=== PATIENT | male | born 1955 | race Caucasian/White ===

== ENCOUNTER 2016-08-21 21:19 | Emergency (ER) | payer SELFPAY ==
[2016-08-21 22:11] LABS: BASOPHILS 0.4 % (0.0-2.0); EOSINOPHILS 0.9 % (0.0-6.0); EOSINOPHILS# 0.1 X 10^3uL (0.0-0.4); HEMOGLOBIN 15.6 g/dL (14.0-18.0); LYMPHOCYTES 17.4 % (20.0-40.0); LYMPHOCYTES# 1.4 X 10^3uL (0.8-3.8); MEAN CELL VOLUME 91.3 fL (80.0-100.0); MEAN PLATELET VOLUME 7.8 fL (7.4-10.4); MONOCYTES 7.7 % (2.0-10.0); MONOCYTES# 0.6 X 10^3uL (0.2-1.0); NEUTROPHILS 73.6 % (54.0-75.0); NEUTROPHILS# 6.2 X 10^3uL (2.6-6.7); PLATELET COUNT 192 X 10^3uL (130-440); RED BLOOD COUNT 5.04 X 10^6uL (4.20-6.10); RED CELL DISTRIBUTION WIDTH 13.1 % (11.5-14.5); WHITE BLOOD COUNT 8.3 X 10^3uL (3.9-10.7)
[2016-08-21 22:18] LABS: ALBUMIN 4.3 g/dL (3.5-5.0); ALKALINE PHOSPHATASE 103 U/L (38-126); ALT 44 U/L (21-72); AST 22 U/L (17-59); BILIRUBIN, TOTAL 0.7 mg/dL (0.2-1.3); BLOOD UREA NITROGEN 16 mg/dL (9-20); CALCIUM 9.9 mg/dL (8.4-10.2); CHLORIDE 106 mmol/L (98-107); CREATININE 0.8 mg/dL (0.7-1.3); EST GLOMERULAR FILTRATION RATE > 60 mL/min; GLUCOSE 159 mg/dL (70-100); LIPASE 60 U/L (23-300); POTASSIUM 3.6 mmol/L (3.5-5.1); SODIUM 138 mmol/L (137-145); TOTAL PROTEIN 7.2 g/dL (6.3-8.2)
[2016-08-21 22:20] LABS: ACETAMINOPHEN < 10.0 ug/mL (10.0-30.0); ETHYL ALCOHOL < 10 mg/dL (<10); SALICYLATE < 1.0 mg/dL (<20.0)
[2016-08-21 22:47] LABS: THYROID STIMULATING HORMONE 0.44 uIU/mL (0.47-4.68)
[2016-08-21 22:48] LABS: URINE MUCUS NONE SEEN (Up to 25%); URINE RBC NONE SEEN (0-5/hpf); URINE SQUAMOUS EPITHELIAL CELL NONE SEEN (<= 15/hpf); URINE WBC NONE SEEN (0-4/hpf)
[2016-08-21 22:53] LABS: URINE APPEARANCE CLEAR; URINE COLOR YELLOW; URINE LEUKOCYTE ESTERASE NEGATIVE (NEGATIVE); URINE NITRITE NEGATIVE (NEGATIVE); URINE PROTEIN 30mg/dL (1+) (NEG - TRACE)
[2016-08-21 22:54] LABS: URINE BILIRUBIN NEGATIVE (NEGATIVE); URINE BLOOD NEGATIVE (NEGATIVE); URINE GLUCOSE NORMAL (NEGATIVE); URINE KETONE NEGATIVE (NEGATIVE); URINE UROBILINOGEN 1mg/dL (Normal) (NEG-1mg/dL)
[2016-08-21 22:59] LABS: URINE BACTERIA <10 ORGANISMS/hpf (<10/hpf); URINE SPERM PRESENT
--- NOTE | 2016-08-21 23:09 | ER NURSING DOCUMENTATION ---
Nurse's Notes [facility] Name:Virgilio Taveras Age:61 yrs Sex:Male :1955 Arrival Date:08/21/2016 Time:21:19 Bed5 Private MD:Jacy Gonzalez Diagnosis:Major Depression with Suicidal Ideation Presentation: 08/21 21:22 Presenting complaint: Patient states: TOOK 2 AMBIEN TONIGHT AT 7PM BECAUSE I WAS SO lc TIRED AND WANTED TO SLEEP. DAUGHTERS STATE THAT HE SAID WANTED TO KILL HIMSELF TODAY. STATES HE HAS BEEN HAVING TROUBLE GETTING OUT OF BED EACH DAY DUE TO CHRONIC HIP PAIN. 21:22 Acuity: KADEN 2 21:22 Method Of Arrival: Private Vehicle lc 21:25 Transition of care: Home. Notified ED Physician of patient's arrival and CC Dr. Lugo lc notified. Triage Assessment: 21:42 General: Appears in no apparent distress, Behavior is cooperative, drowsy. Pain: Denies lc pain. Neuro: Level of Consciousness is awake, alert, Oriented to person, place, time, event, Speech is normal. Respiratory: Airway is patent Respiratory effort is even, unlabored, Respiratory pattern is regular, symmetrical. Derm: Skin is pink, warm & dry. Historical: - Home Meds: 1. Zolpidem Tartrate Oral 2. amlodipine oral 3. Bupropion Oral 4. fluoxetine Oral 5. Metformin Oral 6. Omeprazole Oral 7. oxycodone 20 mg oral tab 1 tab every 6 hours - Tetanus: < 10 years. - Ebola Screening: : No symptoms or risks identified at this time. . - Immunization history: Flu Vaccine < 1 year. - Social history: Smoking status: Patient uses tobacco products, current every day smoker. Screenin:47 Infectious Disease Risk None. Abuse screen: Denies threats or abuse. Denies injuries lc from another. Nutritional screening: No deficits noted. Suicide Risk Assessment: Suicidal Thinking Present - Yes ( 2 points), Past Attempts - No (0 points), Family History of Suicide - No (0 points), Credible Suicide Plan - No (0 points), Means to Kill Self Available - Yes (3 points), Has Serious Health Problem - No ( 0 points), Will Contract for Safety - Yes (0 points), Total Suicide Risk Assessment Score: Score of 3 or Greater (Substantial risk for suicide). Family member remains at bedside. Assessment: 21:46 See Triage Assessment done by same RN. lc 21:51 Reassessment: Patient appears in no apparent distress at this time. MED BOTTLES REFLECT lc ONLY 2 AMBIEN MISSING, DAUGHTERS AT BEDSIDE, PATIENT DENIES URGE TO HURT HIMSELF.. 22:24 Reassessment: Patient appears in no apparent distress at this time. PO FLUIDS GIVEN lc INORDER TO OBTAIN UA SPECIMEN. 23:01 Reassessment: Patient appears in no apparent distress at this time. MONITOR IN NSR, lc VSS, IV DC'D, DAUGHTERS TO DRIVE DOWN TO [facility], UA COLLECTED. PATIENT CONSENTS TO [facility] EVALUATION. Vital Signs: 21:22 BP 142 / 86 (auto/); Pulse 74; Resp 16; Pulse Ox 92% on R/A; Pain 0/10; lc 21:30 BP 164 / 98; Pulse 90; Resp 16; Temp 98; Pulse Ox 97% on R/A; Weight 73.94 kg; Height 5 ft. 11 in. (180.34 cm); Pain 0/10; 21:30 BP 153 / 94 (auto/); Pulse 80; Resp 16; Pulse Ox 93% ; Pain 0/10; lc 23:08 Pulse 72; Resp 16; Pulse Ox 92% ; Pain 0/10; lc 21:30 Body Mass Index 22.73 (73.94 kg, 180.34 cm) ED Course: 21:20 Patient arrived in ED. em2 21:20 Jacy Gonzalez is Private Physician. em2 21:22 Kortney Blas, JERICA is Primary Nurse. 21:25 Blane Lugo MD is Attending Physician. tl1 21:30 court monitor on. Pulse ox on. 21:41 Triage completed. 21:50 Valuables Remains with patient NO SHARP OBJECTS. Patient has correct armband on for lc positive identification. Bed in low position. Call light in reach. Adult w/ patient. Pulse Ox - RN Monitoring Only. 22:03 Inserted peripheral IV: 20 gauge in left antecubital area. bw2 22:08 Labs drawn. (by ED staff). Sent per order to lab. lc Administered Medications: No medications were administered Outcome: 22:28 ER care complete, transfer ordered by . tl1 23:03 [facility] lc Acceptance Time: August 21, 2016 at 22:30 Patient's face sheet was faxed to accepting facility. Face Sheet included patient's name, address, age, gender, contact information and insurance information. Patient will be transported by: Private Vehicle. Report called to: AMAURY PIZANO Nurse and Physician Charting and Notes were sent to Accepting Facility. All tests and/or procedures with results, if applicable, were sent to accepting facility. 23:03 Condition: stable 23:03 Report given to AMAURY PIZANO 23:03 Discharge Assessment: Patient awake and alert. Oriented to person, place and time. Patient verbalized understanding of disposition instructions. 23:03 Discharge instructions given to patient, family, Instructed on need for transfer Demonstrated understanding of instructions. 23:08 Patient left the ED. Signatures: Kortney Blas, RN RN lc Raquel-reg, Umu-reg em2 Blane Lugo MD MD tl1 Andria, Sandra bw2
--- NOTE | 2016-08-21 23:09 | ER PHYSICIAN DOCUMENTATION ---
Physician Documentation [facility] Name:Virgilio Taveras Age:61 yrs Sex:Male :1955 Arrival Date:08/21/2016 Time:21:19 Bed5 Private MD:Jacy Gonzalez ED, Tom Disposition: 08/21 22:42 Chart complete. tl1 Disposition: 08/21/16 22:28 Transfer ordered to [facility]. Diagnosis is Major Depression with Suicidal Ideation. - Reason for transfer: Specialty. - Accepting physician is Dr Nadia Ordoñez. - Condition is Good. - Problem is new. - Symptoms have improved. COBRA Form completed? Yes Transfer - Mode of Transportation Private Vehicle - Notes: [facility] FURTHER EVALUATION HPI: 21:47 This 61 yrs old Male presents to ER via Private Vehicle with complaints of tl1 Suicidal Ideation. 21:47 The patient presents to the emergency department with depression, suicide ideation, and tl1 the patient has a plan. Onset: The symptom(s)/episode began/occurred gradually. 22:28 He has a long h/o depression, never hospitalized, now on prozac and bupoprion. His left tl1 hip pain has become severe and for the last 8 weeks he has been taking oxycodone for this. For the last 6 weeks his depression has deepened to the point that he is exhausted, sleeping poorly and has only the energy to go to work and go to bed. He has severe anhedonia, sleep difficulties and, over the last several day, increasing thoughts of suicide. His last daughter is moving out of the house this weekend and he is very sad about that as he will be living alone. He confided to his daughter jaskaran that he had taken 2 ambien tablets earlier in the day, hoping to end his life, but he now regrets that decision, does not want to , and is glad that his daughters brought him here. He denies any . other ingestion, and currently has no other plan for taking his life.. Historical: - Home Meds: 1. Zolpidem Tartrate Oral 2. amlodipine oral 3. Bupropion Oral 4. fluoxetine Oral 5. Metformin Oral 6. Omeprazole Oral 7. oxycodone 20 mg oral tab 1 tab every 6 hours - Tetanus: < 10 years. - Ebola Screening: : No symptoms or risks identified at this time. . - Immunization history: Flu Vaccine < 1 year. - Social history: Smoking status: Patient uses tobacco products, current every day smoker. ROS: 22:36 Constitutional: Negative for fever, chills, and weight loss. tl1 22:36 Psych: Positive for depression, insomnia, suicide gesture, suicidal ideation, Negative for drug dependence, alcohol dependence, auditory hallucinations, visual hallucinations, homicidal ideation. 22:36 All other systems are negative. Exam: 22:37 Constitutional: This is a well developed, well nourished patient who is awake, alert, tl1 and in no acute distress. Head/Face: Normocephalic, atraumatic. Eyes: Pupils equal round and reactive to light, extra-ocular motions intact. Lids and lashes normal. Conjunctiva and sclera are non-icteric and not injected. Cornea within normal limits. Periorbital areas with no swelling, redness, or edema. ENT: Nares patent. No nasal discharge, no septal abnormalities noted. Tympanic membranes are normal and external auditory canals are clear. Oropharynx with no redness, swelling, or masses, exudates, or evidence of obstruction, uvula midline. Mucous membranes moist. Neck: Trachea midline, no thyromegaly or masses palpated, and no cervical lymphadenopathy. Supple, full range of motion without nuchal rigidity, or vertebral point tenderness. No Meningismus. Cardiovascular: Regular rate and rhythm with a normal S1 and S2. No gallops, murmurs, or rubs. Normal PMI, no JVD. No pulse deficits. Respiratory: Lungs have equal breath sounds bilaterally, clear to auscultation and percussion. No rales, rhonchi or wheezes noted. No increased work of breathing, no retractions or nasal flaring. Abdomen/GI: Soft, non-tender, with normal bowel sounds. No distension or tympany. No guarding or rebound. No evidence of tenderness throughout. Skin: Warm, dry with normal turgor. Normal color with no rashes, no lesions, and no evidence of cellulitis. MS/ Extremity: Pulses equal, no cyanosis. Neurovascular intact. Full, normal range of motion. 22:37 Neuro: Awake and alert, GCS 15, oriented to person, place, time, and situation. tl1 Cranial nerves II-XII grossly intact. Motor strength 5/5 in all extremities. Sensory grossly intact. Cerebellar exam normal. Normal gait. 22:37 Psych: Behavior/mood is pleasant, cooperative, depressed, Affect is calm, flat, Oriented to person, place, time, Patient having thoughts of suicide. Denies suicidal plan. Judgement / Insight is normal. Memory is normal. Delusions/hallucinations are not present. Vital Signs: 21:22 BP 142 / 86 (auto/); Pulse 74; Resp 16; Pulse Ox 92% on R/A; Pain 0/10; lc 21:30 BP 164 / 98; Pulse 90; Resp 16; Temp 98; Pulse Ox 97% on R/A; Weight 73.94 kg; Height 5 lc ft. 11 in. (180.34 cm); Pain 0/10; 21:30 BP 153 / 94 (auto/); Pulse 80; Resp 16; Pulse Ox 93% ; Pain 0/10; lc 23:08 Pulse 72; Resp 16; Pulse Ox 92% ; Pain 0/10; lc 21:30 Body Mass Index 22.73 (73.94 kg, 180.34 cm) MDM: 21:25 Patient medically screened. tl1 22:38 Differential diagnosis: depression. Data reviewed: vital signs, nurses notes, and as a tl1 result, I will *Transfer Patient. Counseling: I had a detailed discussion with the patient and/or guardian regarding: the historical points, exam findings, and any diagnostic results supporting the discharge/admit diagnosis, lab results, the need to transfer to another facility, for higher level of care, [facility] does not immediately have the required specialist. Response to treatment: There is no appreciated change of the patient's symptoms at this time. Physician consultation: Nadia Ordoñez was called at 22:20, was contacted at 22:25, regarding patient's condition, Transfer for psych hospitalization., and will see patient in ED, at [facility]. after a discussion of the case, a recommendation for transfer for higher level of care is made. 08/21 22:17 Order name: CBC AUTO DIF, MDIF/RMOR IF IND; Complete Time: 01:16 EDMS 08/22 01:16 Interpretation: Normal. tl1 08/21 22:20 Order name: BASIC METABOLIC PANEL; Complete Time: 01:16 EDMS 08/22 01:16 Interpretation: Normal Except: GLUCOSE 159. 08/21 22:20 Order name: HEPATIC PANEL; Complete Time: 01:16 EDMS 08/22 01:16 Interpretation: Normal. 08/21 22:20 Order name: LIPASE; Complete Time: 01:16 EDMS 08/22 01:16 Interpretation: Normal: LIPASE 60. 08/21 22:20 Order name: SALICYLATE; Complete Time: 01:16 EDMS 08/22 01:16 Interpretation: Normal: SALICYLATE < 1.0. 08/21 22:20 Order name: ETHYL ALCOHOL; Complete Time: 01:16 EDMS 08/22 01:16 Interpretation: Normal: ETHYL ALCOHOL < 10. 08/21 22:20 Order name: ACETAMINOPHEN; Complete Time: 01:16 EDMS 08/22 01:16 Interpretation: Normal: ACETAMINOPHEN < 10.0. 08/21 22:48 Order name: THYROID STIMULATING HORMONE; Complete Time: 01:16 EDIL 08/21 23:01 Order name: UA W/ MICRO -CULTURE IF IND; Complete Time: 01:16 EDMS 08/22 01:16 Interpretation: Normal. 08/21 23:01 Order name: URINE DRUG SCREEN, QUAL; Complete Time: 01:16 EDMS 08/22 01:16 Interpretation: Normal Except: [place] PRESUMPTIVE POS. 08/21 21:48 Order name: Continuous Cardiac Monitoring; Complete Time: 22:35 [place] 08/21 21:48 Order name: I & O; Complete Time: 22:35 [place] 08/21 21:48 Order name: Iv Saline Lock; Complete Time: 22:35 08/21 21:48 Order name: NPO; Complete Time: 22:35 08/21 21:48 Order name: Pulse Ox Continuous; Complete Time: 22:35 [place] 08/21 21:48 Order name: Suicide Precautions; Complete Time: 22:35 tl1 Dispensed Medications: No medications were administered Signatures: Kortney Blas, Blane Ibanez RN, MD MD 1 Sandra Ayers [facility]
== END 2016-08-21 23:08 | disposition short-term general hospital (02) ==
LOC: ER 21:19
DX: F32.9 Major depressive disorder, single episode, unspecified (principal); R45.851 Suicidal ideations; M25.552 Pain in left hip; G47.00 Insomnia, unspecified; F13.929 Sedative, hypnotic or anxiolytic use, unspecified with intoxication, unspecified; Z79.899 Other long term (current) drug therapy
CPT/HCPCS: 80048; 80076; 80305; 80307; 80320; 80329; 81001; 83690; 84443; 85025; 99285

== ENCOUNTER 2016-09-16 20:58 | Emergency (ER) | payer SELFPAY ==
[2016-09-16] MEDS ORDERED: ONDANSETRON ODT 4 MG TAB.RAPDIS ONE (21:24)
[2016-09-16 21:29] LABS: BASOPHIL# 0.1 X 10^3uL (0.0-0.1); BASOPHILS 0.6 % (0.0-2.0); EOSINOPHILS 0.2 % (0.0-6.0); HEMATOCRIT 47.6 % (42.0-54.0); HEMOGLOBIN 16.2 g/dL (14.0-18.0); LYMPHOCYTES 17.1 % (20.0-40.0); LYMPHOCYTES# 2.1 X 10^3uL (0.8-3.8); MEAN CELL VOLUME 91.9 fL (80.0-100.0); MEAN CORPUS. HGB CONCENTRATION 34.1 g/dL (32.0-36.0); MEAN CORPUSCULAR HEMOGLOBIN 31.3 pg (29.0-35.0); MEAN PLATELET VOLUME 8.1 fL (7.4-10.4); MONOCYTES 3.9 % (2.0-10.0); MONOCYTES# 0.5 X 10^3uL (0.2-1.0); NEUTROPHILS 78.2 % (54.0-75.0); NEUTROPHILS# 9.6 X 10^3uL (2.6-6.7); PLATELET COUNT 340 X 10^3uL (130-440); RED BLOOD COUNT 5.18 X 10^6uL (4.20-6.10); RED CELL DISTRIBUTION WIDTH 13.3 % (11.5-14.5); WHITE BLOOD COUNT 12.3 X 10^3uL (3.9-10.7)
[2016-09-16 21:41] LABS: ALBUMIN 4.4 g/dL (3.5-5.0); ALKALINE PHOSPHATASE 191 U/L (38-126); ALT 54 U/L (21-72); AST 34 U/L (17-59); BILIRUBIN, DIRECT 0.2 mg/dL (0.0-0.4); BILIRUBIN, TOTAL 0.8 mg/dL (0.2-1.3); BLOOD UREA NITROGEN 12 mg/dL (9-20); CALCIUM 10.3 mg/dL (8.4-10.2); CHLORIDE 104 mmol/L (98-107); EST GLOMERULAR FILTRATION RATE > 60 mL/min; GLUCOSE 162 mg/dL (70-100); LIPASE 57 U/L (23-300); POTASSIUM 4.1 mmol/L (3.5-5.1); SODIUM 138 mmol/L (137-145); TOTAL PROTEIN 7.3 g/dL (6.3-8.2)
[2016-09-16] MEDS ORDERED: ONDANSETRON HCL 4 MG/2 ML VIAL ONE (21:53)
[2016-09-16] MEDS ORDERED: ACETAMINOPHEN 325 MG TABLET PO PRN (21:58)
[2016-09-16] MEDS ORDERED: HOME MEDICATION LIST NEEDED 1 EA EACH MC ONE (21:58)
[2016-09-16] MEDS ORDERED: MAG-AL PLUS XS SUSP 30 ML UDC PO PRN (21:58)
[2016-09-16] MEDS ORDERED: ZOLPIDEM TARTRATE 5 MG TABLET PO PRN (21:58)
[2016-09-16] MEDS ORDERED: POLYETHYLENE GLYCOL 3350 17 GM POWD.PACK PO PRN (21:58)
[2016-09-16] MEDS ORDERED: POTASSIUM CHLORIDE/NS 1,000 MEQ/50,000 ML BAG IV SCH (22:00)
[2016-09-16] MEDS ORDERED: oxyCODONE HCL IR 20 MG TABLET PO PRN (22:05)
[2016-09-16] MEDS ORDERED: ONDANSETRON ODT 4 MG TAB.RAPDIS PO PRN (22:06)
[2016-09-16] MEDS ORDERED: MORPHINE SULFATE 2 MG/ML SYR IV PRN (22:06)
[2016-09-16 22:28] LABS: ACETAMINOPHEN < 10.0 ug/mL (10.0-30.0); ETHYL ALCOHOL < 10 mg/dL (<10); MAGNESIUM 1.6 mg/dL (1.6-2.3); SALICYLATE < 1.0 mg/dL (<20.0)
[2016-09-16] MEDS ORDERED: PIPERACILLIN /TAZO 3.375 GM/10 ML VIAL IV ONE (22:56)
[2016-09-16] MEDS ORDERED: NORMAL SALINE MINI-BAG+ 100 ML IV ONE (22:58)
[2016-09-16] MEDS ORDERED: LIDOCAINE HCL 2% URO-JET 5 ML JEL.PF.APP MUCOUS MEM ONE (22:59)
[2016-09-16] MEDS ORDERED: NORMAL SALINE 250 ML IV ONE (23:00)
--- NOTE | 2016-09-17 00:03 | ER NURSING DOCUMENTATION ---
Nurse's Notes [facility] Name:Virgilio Taveras Age:61 yrs Sex:Male :1955 Arrival Date:09/16/2016 Time:20:58 BedD-11 Private MD:Jcay Gonzalez Diagnosis:Metabolic Acidosis;Gastroenteritis;Vomiting - Dehydration-with [place];Sepsis-: Rule out;Hyperventilation Syndrome Presentation: 09/16 21:00 Presenting complaint: EMS states: N/V/D x two days. Today increased weakness and AMS. mk4 Transition of care: Home. 21:00 Method Of Arrival: EMS: 420 mk4 21:00 Acuity: KADEN 2 mk4 Triage Assessment: 20:50 General: Appears distressed, emaciated, Behavior is listless. Pain: Denies pain. EENT: mk4 No deficits noted. Neuro: Level of Consciousness is awake, confused, lethargic, obeys commands, Oriented to person, [place] are weak bilaterally Moves all extremities. Gait is unsteady, Speech is slurred, Facial symmetry appears normal, Pupils are sluggish. Cardiovascular: Rhythm is regular Chest pain is denied. Respiratory: Airway is patent Trachea midline Respiratory effort is labored, gasping, pursed lip, Respiratory pattern is hyperventilation Breath sounds are clear Reports shortness of breath labored breathing Onset: The symptoms/episode began/occurred gradually, the patient has severe shortness of breath. GI: Abdomen is flat, Bowel sounds diminished in right upper quadrant, left upper quadrant, right lower quadrant and left lower quadrant. :. Derm: No deficits noted. Musculoskeletal: No deficits noted. Historical: - Allergies: No known drug Allergies; - Home Meds: 1. fluoxetine Oral Unknown 2. Iron CR Oral Unknown 3. Zolpidem Tartrate Oral Unknown 4. Bupropion Oral Unknown 5. Metformin Oral Unknown 6. Metoprolol Tartrate Oral 7. amlodipine oral Unknown 8. Omeprazole Oral Unknown - PMHx: HYPERTENSION; Acute Respiratory Distress/Insufficiency (May 21, 2015); - Tetanus: < 10 years. - Ebola Screening: : No symptoms or risks identified at this time. . - Immunization history: Unable to Obtain Unable to Obtain Unable to Obtain. - Social history: Smoking status: unknown if patient ever smoked tobacco. Screenin:00 Infectious Disease Risk None. Abuse screen: Denies threats or abuse. Nutritional mk4 screening: No deficits noted. Assessment: 21:00 See Triage Assessment done by same RN. mk4 Vital Signs: 20:59 BP 168 / 96 RA Sitting (auto/reg); Pulse 91 MON; Resp 40 S; Pulse Ox 100% ; em3 21:28 Temp 97.8(TE); em3 21:53 BP 132 / 76; Pulse 86; Resp 20; Pulse Ox 100% ; em3 21:53 BP 132 / 76 (auto/); mk4 21:55 Pulse 87 MON; Resp 17; Pulse Ox 99% ; mk4 22:56 BP 158 / 84; Pulse 85; Resp 24; Temp 98.7; Pulse Ox 99% ; Pain 0/10; mk4 [place] Coma Score: 21:00 Eye Response: spontaneous(4). Verbal Response: oriented(5). Motor Response: obeys mk4 commands(6). Total: 15. 21:55 Eye Response: spontaneous(4). Verbal Response: oriented(5). Motor Response: obeys cd commands(6). Total: 15. ED Course: 20:59 Patient arrived in ED. em2 20:59 Jacy Gonzalez is Private Physician. em2 21:00 Inserted peripheral IV: 18 gauge 20 gauge in right in left antecubital area and blood mk4 collected. 21:00 Allergy Band Placed Arm band placed on Bed in low position Call Light in Reach Gowned mk4 Side rails up x2. Family accompanied patient. EKG done per protocol. Labs ordered per protocol. X-ray done. 21:00 Cardiac Monitoring On for Nurse Monitoring only. Pulse Ox - RN Monitoring Only NIBP On mk4 - RN Monitoring Only. Door closed. Noise minimized. Warm blanket given. 21:05 Jose Martinez MD is Attending Physician. cd 21:09 Priscilla Marquez is Primary Nurse. mk4 22:08 Alba Gallegos DO is Admitting Physician. cd 22:13 Triage completed. mk4 23:00 [place] cath inserted 16 Fr. To gravity drainage. Urine specimen collected. Patient mk4 tolerated well. 23:06 Urine collected. Specimen obtained from [place]. em3 23:45 Valuables sent with patient. mk4 Administered Medications: Completed: NS 0.9% 1000 ml IV at 250 ml/hr continuous Completed: NS 0.9% 1000 ml IV at bolus once 21:00 Drug: NS 0.9% 1000 ml; Volume: 1000 ml; Route: IV; Rate: bolus; Infused Over: 45 mins; mk4 Site: left antecubital; Delivery: [place] Tubing; 22:35 Follow up: IV Status: Completed infusion; Infusion discontinued mk4 21:31 Drug: Zofran 4 mg; Route: IVP; Rate: 4 bolus; Infused Over: 2 mins; Site: left [facility] antecubital; 22:36 Follow up: Response: No adverse reaction; Nausea is decreased mk4 21:40 Drug: NS 0.9% 1000 ml; Volume: 1000 ml; Route: IV; Rate: 250 ml/hr; Infused Over: 4 mk4 hrs; Site: left antecubital; Delivery: Pump; 22:35 Follow up: IV Status: Completed infusion; Infusion continued mk4 22:37 Follow up: IV Intake: 1000ml mk4 22:10 Drug: NS 0.9% 1000 ml; Route: IV; Rate: bolus; Site: left antecubital; bw2 22:36 Follow up: IV Status: Completed infusion; Infusion discontinued; IV Intake: 1000ml mk4 22:55 Drug: Zosyn 3.375 grams; Volume: 100 ml; Route: IVPB; Rate: 3.75 bolus; Infused Over: mk4 30 mins; Site: left antecubital; Delivery: Pump; 23:54 Follow up: IV Status: Completed infusion; Infusion discontinued; IV Intake: 100ml mk4 22:56 CANCELLED (Duplicate Order): Zosyn 3.375 grams IVPB once mk4 23:30 Drug: Phenergan 12.5 mg; Route: IVP; Rate: 12.5 bolus; Infused Over: 5 mins; Site: left [facility] antecubital; 23:55 Follow up: Response: No adverse reaction; Nausea is decreased mk4 Point of Care Testing: Urine Dip: 23:00 pH: 6.5; ; Specific [place]: 1.015; Ketones: Moderate; Glucose: Negative; Protein: em3 Trace; Leukocytes: Negative; Nitrite: Negative ; Blood: Non Hemolyzed Trace; Bilirubin: Negative ; Urobilinogen: Normal Intake: 22:36 IV: 1000ml; Total: 1000ml. mk4 22:37 IV: 1000ml; Total: 2000ml. mk4 23:54 IV: 100ml; Total: 2100ml. mk4 Output: 22:55 Urine: 1400ml ([place]); Total: 1400ml. em3 Outcome: 22:11 Decision to Admit by Provider. cd 22:56 Transferred: Patient will be transferred to: [facility]. Facility mk4 Acceptance Time: September 16, 2016 at 22:56 Patient's face sheet was faxed to accepting facility. Face Sheet included patient's name, address, age, gender, contact information and insurance information. Patient will be transported by: [facility] ground. Report called to: ICU Segun RN 22:56 critical 22:56 Report given to ICU charge account authorizer 22:56 Discharge Assessment: Patient awake, confused, lethargic, Oriented to person. 23:07 ER care complete, transfer ordered by . cd 09/17 00:03 Patient left the ED. mk4 Signatures: Jose Martinez MD MD cd Raquel-Duncan pathak em2 Kit Le em3 Priscilla Marquez mk4 Sandra Ayers 2
--- NOTE | 2016-09-17 00:03 | ER PHYSICIAN DOCUMENTATION ---
Physician Documentation [facility] Name:Virgilio Taveras Age:61 yrs Sex:Male :1955 Arrival Date:09/16/2016 Time:20:58 BedD-11 Private MD:Jacy Gonzalez ED, Chris Disposition: 09/16 22:08 Critical Care: not applicable. cd 22:30 Chart complete. cd Disposition: 09/16/16 23:07 Transfer ordered to [facility]. Diagnosis are Metabolic Acidosis, Gastroenteritis, Vomiting - Dehydration - with Ketouria, Sepsis - : Rule out, Hyperventilation Syndrome. - Reason for transfer: Higher level of care. - Accepting physician is Dr. Dominick Pena, [facility] Hospitalist. - Condition is Fair. - Problem is new. - Symptoms have improved. COBRA Form completed? Transfer - Mode of Transportation Ambulance HPI: 21:00 This 61 yrs old Male presents to ER via EMS with complaints of Shortness Of cd Breath. 21:00 The patient has shortness of breath at rest, that occurred at home, Patient reports cd severe nausea and vomiting for the past 2 - 3 days. He has been very anxious and presented to the ED ,per the EMS, hyperventilating with an O2 sat of 100%. He was given Zofran NURSE CLINICAL. Onset: The symptom(s)/episode began/occurred gradually, 3 day(s) ago. Duration: The symptoms are continuous, and are steadily getting worse. The patient's shortness of breath is aggravated by eating, is alleviated by nothing. The patient presents to the emergency department with nausea, that is severe, with vomiting, that is intermittent, described as clear fluid, with diarrhea, a few times, described as watery, without any complaints of abdominal pain. Possible causes: unknown. Associated signs and symptoms: Pertinent positives: diaphoresis, nausea, vomiting, Pertinent negatives: chest pain, productive cough, fever, hemoptysis, loss of consciousness. Severity of symptoms: At their worst the symptoms were severe in the emergency department the symptoms are unchanged. Associated signs and symptoms: Pertinent positives: anorexia, Pertinent negatives: abdominal pain, constipation, GI bleeding, hematuria. Risk Factors Risk factors for coronary artery disease include: A history of hypertension. The patient has not experienced similar symptoms in the past. The patient has not recently seen a physician. Historical: - Allergies: No known drug Allergies; - Home Meds: 1. fluoxetine Oral Unknown 2. Iron CR Oral Unknown 3. Zolpidem Tartrate Oral Unknown 4. Bupropion Oral Unknown 5. Metformin Oral Unknown 6. Metoprolol Tartrate Oral 7. amlodipine oral Unknown 8. Omeprazole Oral Unknown - PMHx: HYPERTENSION; Acute Respiratory Distress/Insufficiency (May 21, 2015); - Tetanus: < 10 years. - Ebola Screening: : No symptoms or risks identified at this time. . - Immunization history: Unable to Obtain Unable to Obtain Unable to Obtain. - Social history: Smoking status: unknown if patient ever smoked tobacco. ROS: 21:55 Eyes: Negative for injury, pain, redness, discharge, blurry vision and loss of vision. cd 21:55 ENT: Negative for injury, pain, epistaxis and discharge. cd Neck: Negative for injury, pain, stiffness and swelling. Cardiovascular: Negative for chest pain, palpitations, edema and pleuritic pain. Back: Negative for injury, pain or muscle spasms. : Negative for injury, bleeding, discharge, swelling, dysuria, frequency or urgency. MS/Extremity: Negative for injury, deformity, edema, calf tenderness, pain or coldness. Skin: Negative for injury, rash, itching and discoloration. 21:55 Neuro: Negative for headache, weakness, numbness, tingling, and seizure. 21:55 Constitutional: Positive for poor PO intake, Negative for body aches, chills, fever. 21:55 Respiratory: Positive for shortness of breath, Negative for cough, hemoptysis, orthopnea, pleurisy, sputum production, wheezing. 21:55 Abdomen/GI: Positive for nausea, vomiting, diarrhea, anorexia, Negative for abdominal pain, constipation, abdominal distension, hematemesis, black/tarry stool, rectal bleeding. 21:55 Psych: Positive for anxiety, Negative for depression, drug dependence, alcohol dependence, auditory hallucinations, visual hallucinations, homicidal ideation, suicide gesture, suicidal ideation. 21:55 All other systems are negative. Exam: Head/Face: Normocephalic, atraumatic. Eyes: Pupils equal round and reactive to light, extra-ocular motions intact. Lids and lashes normal. Conjunctiva and sclera are non-icteric and not injected. Cornea within normal limits. Periorbital areas with no swelling, redness, or edema. ENT: Nares patent. No nasal discharge, no septal abnormalities noted. Tympanic membranes are normal and external auditory canals are clear. Oropharynx with no redness, swelling, or masses, exudates, or evidence of obstruction, uvula midline. Mucous membranes dry Neck: Trachea midline, no thyromegaly or masses palpated, and no cervical lymphadenopathy. Supple, full range of motion without nuchal rigidity, or vertebral point tenderness. No Meningismus. 21:55 Chest/axilla: Normal chest wall appearance and motion. Nontender with no deformity. cd No lesions are appreciated. 21:55 Constitutional: The patient appears alert, non-toxic, well developed, well nourished, anxious, diaphoretic, listless, in obvious distress, moderately distressed. 21:55 Cardiovascular: Rate: normal, Rhythm: regular, Pulses: no pulse deficits are appreciated, Heart sounds: normal, Edema: is not appreciated. 21:55 Respiratory: moderate respiratory distress is noted, Respirations: labored breathing, is not present, accessory muscle usage, is absent, intercostal retractions, are absent, shallow respirations, that is moderate, tachypnea, that is moderate, Breath sounds: rales, are not appreciated, rhonchi, are not appreciated, wheezing, is not appreciated, bronchial sounds, are not appreciated. 21:55 Abdomen/GI: Inspection: abdomen appears normal, Bowel sounds: normal, active, Palpation: abdomen is soft and non-tender, rebound tenderness, is not appreciated, voluntary guarding, is not appreciated, involuntary guarding, is not appreciated, no appreciated organomegaly, Indicators: McBurney's point is not tender, Artis's sign is negative. 21:55 Back: Exam negative for acute changes. 21:55 Musculoskeletal/extremity: Exam is negative for acute changes. 21:55 Skin: Appearance: normal except for affected area. 21:55 Neuro: Orientation: is normal, to person, place & time. Mentation: lucid, slow to respond, Memory: is normal, Cranial nerves: CN II- XII are normal as tested, Motor: moves all fours, Sensation: is normal. 21:55 Psych: Behavior/mood is cooperative, anxious, Affect is flat, Oriented to person, place, time, Patient has no thoughts/intents to harm self or others. Judgement / Insight is normal. Memory is normal. Delusions/hallucinations are not present. Vital Signs: 20:59 BP 168 / 96 RA Sitting (auto/reg); Pulse 91 MON; Resp 40 S; Pulse Ox 100% ; em3 21:28 Temp 97.8(TE); em3 21:53 BP 132 / 76; Pulse 86; Resp 20; Pulse Ox 100% ; em3 21:53 BP 132 / 76 (auto/); mk4 21:55 Pulse 87 MON; Resp 17; Pulse Ox 99% ; mk4 22:56 BP 158 / 84; Pulse 85; Resp 24; Temp 98.7; Pulse Ox 99% ; Pain 0/10; mk4 Cam Coma Score: 21:00 Eye Response: spontaneous(4). Verbal Response: oriented(5). Motor Response: obeys mk4 commands(6). Total: 15. 21:55 Eye Response: spontaneous(4). Verbal Response: oriented(5). Motor Response: obeys cd commands(6). Total: 15. MDM: 21:05 Patient medically screened. cd 21:15 Data interpreted: Pulse oximetry: on room air is 100 %. Interpretation: due to cd Hyperventilation. 21:25 Differential diagnosis: Anxiety Reaction viral gastroenteritis, gastroenteritis, Severe cd Dehydration, Hyperventilation Syndrome Myocardial Infarction Psychogenic Sepsis. Antibiotic administration: Zosyn 3.375 GM IVPB to cover for possible Sepsis from an abdominal source. 22:30 Physician consultation: Dominick Lowery MD was called at 22:20, was contacted at cd 22:25, regarding admission, to the floor, consult, patient's condition, need to evaluate the patient as soon as possible, and will see patient in inpatient room, shortly, later today, after a discussion of the case, a recommendation for transfer for higher level of care is made. 22:45 Data reviewed: vital signs, nurses notes, EMS record, old medical records, lab test cd result(s), EKG, and as a result, I will *Transfer Patient administer antibiotics Zosyn, administer IV fluids, NS bolus, NS maintenence, and place a Edmonds Catheter. 22:50 Counseling: I had a detailed discussion with the patient and/or guardian regarding: the cd historical points, exam findings, and any diagnostic results supporting the discharge/admit diagnosis, lab results, the need to transfer to another facility, for higher level of care, [facility] does not immediately have the required specialist. Response to treatment: the patient's symptoms have markedly improved after treatment. 09/16 21:33 Order name: CBC AUTO DIF, MDIF/RMOR IF IND; Complete Time: 21:46 EDMS 09/16 22:08 Interpretation: Normal Except: WHITE BLOOD COUNT 12.3; NEUTROPHILS 78.2. 09/16 21:45 Order name: BASIC METABOLIC PANEL; Complete Time: 21:46 EDMS 09/16 21:46 Interpretation: Abnormal: CARBON DIOXIDE 13; GLUCOSE 162; Metabolic Acidosis, cd Dehydration, Hyperventilation, Hyperglycemia. 09/16 21:45 Order name: HEPATIC PANEL; Complete Time: 21:46 EDMS 09/16 21:46 Interpretation: Normal Except: ALKALINE PHOSPHATASE 191. 09/16 21:45 Order name: LIPASE; Complete Time: 21:46 EDMS 09/16 21:46 Interpretation: Normal. 09/16 22:29 Order name: MAGNESIUM; Complete Time: 22:40 EDMS 09/16 22:40 Interpretation: Normal. 09/16 22:29 Order name: SALICYLATE; Complete Time: 22:40 EDMS 09/16 22:40 Interpretation: Normal. 09/16 22:29 Order name: ETHYL ALCOHOL; Complete Time: 22:40 EDMS 09/16 22:40 Interpretation: Normal. 09/16 22:29 Order name: ACETAMINOPHEN; Complete Time: 22:40 EDMS 09/16 22:40 Interpretation: Normal. 09/16 22:37 Order name: LACTATE; Complete Time: 22:40 [facility] 09/16 22:40 Interpretation: Abnormal: LACTATE 3.1. 09/17 22:01 Order name: BLOOD CULTURE [facility] 09/17 22:01 Order name: BLOOD CULTURE [facility] 09/16 21:06 Order name: I & O; Complete Time: 21:43 09/16 21:06 Order name: NPO; Complete Time: 21:43 09/16 22:46 Order name: Edmonds; Complete Time: 23:56 cd Dispensed Medications: Completed: NS 0.9% 1000 ml IV at 250 ml/hr continuous Completed: NS 0.9% 1000 ml IV at bolus once 21:00 Drug: NS 0.9% 1000 ml; Volume: 1000 ml; Route: IV; Rate: bolus; Infused Over: 45 mins; mk4 Site: left antecubital; Delivery: [place] Tubing; 22:35 Follow up: IV Status: Completed infusion; Infusion discontinued mk4 21:31 Drug: Zofran 4 mg; Route: IVP; Rate: 4 bolus; Infused Over: 2 mins; Site: left [facility] antecubital; 22:36 Follow up: Response: No adverse reaction; Nausea is decreased mk4 21:40 Drug: NS 0.9% 1000 ml; Volume: 1000 ml; Route: IV; Rate: 250 ml/hr; Infused Over: 4 mk4 hrs; Site: left antecubital; Delivery: Pump; 22:35 Follow up: IV Status: Completed infusion; Infusion continued mk4 22:37 Follow up: IV Intake: 1000ml mk4 22:10 Drug: NS 0.9% 1000 ml; Route: IV; Rate: bolus; Site: left antecubital; bw2 22:36 Follow up: IV Status: Completed infusion; Infusion discontinued; IV Intake: 1000ml mk4 22:55 Drug: Zosyn 3.375 grams; Volume: 100 ml; Route: IVPB; Rate: 3.75 bolus; Infused Over: mk4 30 mins; Site: left antecubital; Delivery: Pump; 23:54 Follow up: IV Status: Completed infusion; Infusion discontinued; IV Intake: 100ml mk4 22:56 CANCELLED (Duplicate Order): Zosyn 3.375 grams IVPB once mk4 23:30 Drug: Phenergan 12.5 mg; Route: IVP; Rate: 12.5 bolus; Infused Over: 5 mins; Site: left [facility] antecubital; 23:55 Follow up: Response: No adverse reaction; Nausea is decreased mk4 Point of Care Testing: Urine Dip: 23:00 pH: 6.5; ; Specific [place]: 1.015; Ketones: Moderate; Glucose: Negative; Protein: em3 Trace; Leukocytes: Negative; Nitrite: Negative ; Blood: Non Hemolyzed Trace; Bilirubin: Negative ; Urobilinogen: Normal Signatures: Jose Martinez MD MD cd King, Priscilla 4 Sandra Ayers [facility]
[2016-09-17] MEDS ORDERED: PANTOPRAZOLE 40 MG TABLET PO SCH (06:30)
--- NOTE | 2016-09-17 07:42 | HISTORY & PHYSICAL ---
DATE OF ADMISSION: 09/16/16 ATTENDING PHYSICIAN: Alba Gallegos MD CHIEF COMPLAINT: Shortness of breath with chills. HISTORY OF PRESENT ILLNESS: The patient is a 61-year-old gentleman who arrived here by ambulance after his roommate found him in bed weak and breathing very heavily with concern for shortness of breath they called the ambulance and he was brought to the hospital for further evaluation. Patient unable to give clear history regarding full details of events, although he is able to answer questions appropriately, he just does not give much detail in between. He states that for the last 3 days he has just been feeling ill. He has been more weak than normal and had some vomiting. Most significantly multiple episodes of vomiting today. He has not been eating and drinking as much as he typically does , and he is complaining that he feels very very cold right now. Again, further details of history are difficult to obtain as patient is hyperventilating getting his lab draws done and will need to reassess. PAST MEDICAL HISTORY (from previous records and patient history) 1. Osteoarthritis. 2. Chronic pain in his left hip and knee. 3. History of pneumonia. 4. Hypertension. 5. Coronary artery disease. 6. Hyperlipidemia. 7. History of depression with most recent suicide ideations resulting in Emergency Department visit in July 2016 with transfer to [facility]. PAST SURGICAL HISTORY 1. Right hip replacement and daughter states that he needs one on the left. FAMILY HISTORY: Patient unable to give clear details. He did not state that they contributed to current needs. Both parents are . SOCIAL HISTORY: Patient lives in [place]. His daughter was here with him. They do not live together currently. MEDICATIONS (list of medications were available with no dosing) Zolpidem. Amlodipine. Bupropion. Fluoxetine. Metformin. Metoprolol. Atorvastatin. Oxycodone. ALLERGIES: No known drug allergies. REVIEW OF SYSTEMS: Briefly review of systems was able to be obtained, but patient unable to give much elaboration. GENERAL: He appears chills. He denies fever. He has significant fatigue and weakness. HEENT: He has a dry mouth. RESPIRATORY: He is short of breath and increased respiratory rate. CARDIOVASCULAR: Denies any chest pain. ABDOMEN: He states that he has slight pain in his abdomen. He had vomiting, although daughter states that vomiting is a chronic thing for patient. He denies any diarrhea. MUSCULOSKELETAL: Positive most significantly for his left hip pain and knee pain. This again is chronic for patient. PHYSICAL EXAMINATION VITAL SIGNS: Temperature 97.8, blood pressure 132/76, pulse 86, respiratory rate 20. Heart rate was in the 80-90s during conversation with patient. Oxygen level was 100% on an oximizer. GENERAL: Patient appears uncomfortable and very anxious HEENT: Dry mucous membranes, OP otherwise clear CV: Mildy tachycardic, no murmur RESP: Tachypneic, but overall clear to ausculation ABD: Soft, Slightly distended, but no rebound/guarding MUSCULOSKELETAL: Pain in left hip with motion. PSYCH: Patient very anxious, difficult to get clear history from patient as cannot give clear history related to shortness of breath/tachypnea. LABORATORY: CBC showed white count of 12.3, hemoglobin 16.2, hematocrit 47.6, platelets of 340. BMP showed sodium 138, potassium 4.1, chloride 104, bicarb 13 , BUN 12, creatinine 0.8 and a glucose of 162. His calcium is slightly elevated at 10.3. Total bilirubin 0.8, direct bilirubin 0.2, AST 34, ALT 56, alkaline phosphatase 191. Lipase 57. Lactate pending. Blood cultures pending. Utox Tylenol and alcohol pending. EKG: Sinus at 94, question of an old infarct inferiorly and does have a prolonged QTC. ASSESSMENT/PLAN: This is a 61-year-old gentlemen with a 3-day history of weakness, vomiting, new shortness of breath and hyperventilation. 1. Anion gap metabolic acidosis. This is most likely secondary to his hyperventilation causing his decrease in bicarbonate, although do need to have rule out other potential causes, awaiting lactate and salicylate and other potential indigestion prior to transferring patient to the floor. As his respiratory rate improves, will repeat a BMP and monitor. Glucose is not significantly elevated and he does not have any other significant risk factors for anion gap. 2. Shortness of breath and hyperventilation. This is difficult to ascertain if this is a symptom or the cause. Patients other vitals are stable. He does have a slightly elevated white count at 12.3, although he is afebrile. I have asked for a chest x-ray to be performed and I am awaiting on those results. We will continue supplemental oxygen and encouragement with patient to decrease his respiratory rate, as this does seem to calm patient. At this time in the ED patient is requiring one on one care to help calm his breathing- likely not good candidate for floor. May need to consider some antianxiety agents. 3. Vomiting. Patient is not currently feeling nauseous, although did have vomiting mixed with symptoms prior to coming to the Emergency Department. Daughter however states that this seems to be a chronic issue for her father, as he regularly has vomiting. Unclear what workup has been done as an outpatient. 4. Weakness. This has been noted for the last 3 days per patient. Hard to determine if he has had any medication changes or any other causes of these. Will continue to monitor and reassess in the morning. 5. Chronic pain. Patient is obviously in pain as he is complaining of pain while he is lying in the bed. He is on Oxycodone and appears to have 20 mg q.6 at home. Will order with some additional IV Morphine for hospital course, but will need to confirm his home dosing. He is currently managed at [facility]. Will need to get their records in the morning. 6. Hypertension. Patient is on multi-drug regimen with Metoprolol and Amlodipine. Do not have dosing currently. Will need to reorder them in the morning. Current blood pressure is stable. 7. Depression. Did have significant flare last month as he was seen in our Emergency Room and transferred to [facility] for suicide ideation. Unclear what happened during that stay or if any medication adjustments were taken. 8. Hyperlipidemia. Appears to be on a statin medicine. Will need to get correct dosing in the morning. 9. Leukocytosis. The patient does have tachypnea and leukocytosis. This intermixed with his mild tachycardia does reach diagnosis for SIRS. Do not find any specific source at this time of infection, but will need to closely monitor as he has a complicated picture in regards to what is the cause of his underlying symptoms. Repeat labs in the morning. Blood cultures are pending. 10. Potential diabetes. Patient is on Metformin and need to discuss this further in the morning as well. 11. Disposition. Patient is a [facility] patient and will need to be transitioned to one of our covering providers tomorrow. ADDENDUM: Follow up lab values including an elevated lactate of 3.1. When I went back to the Emergency Room to reevaluate patient, I noted that he was significantly anxious with ongoing tachypnea and just overall not well appearing. I discussed case with Emergency Room physician and felt that he was too high of acuity to be managed on our floor as we do not have the extra staffing to continue to work to calm the hyperventilation and concern with the elevated lactate metabolic acidosis that he is truly septic. He was started empirically on Zosyn prior to and given boluses of fluids and then was transitioned to [facility] for further monitoring for sepsis and workup. NEW
== END 2016-09-17 00:03 | disposition short-term general hospital (02) ==
LOC: ER 20:58
DX: E87.2 Acidosis (principal); K52.89 Other specified noninfective gastroenteritis and colitis; E86.0 Dehydration; R82.4 Acetonuria; F45.8 Other somatoform disorders; R06.02 Shortness of breath; R53.1 Weakness; G89.29 Other chronic pain; I10 Essential (primary) hypertension; R11.2 Nausea with vomiting, unspecified; R19.7 Diarrhea, unspecified; F41.9 Anxiety disorder, unspecified; R61 Generalized hyperhidrosis; R53.83 Other fatigue; R06.82 Tachypnea, not elsewhere classified; R73.9 Hyperglycemia, unspecified; R94.31 Abnormal electrocardiogram [ECG] [EKG]; R68.83 Chills (without fever); I25.2 Old myocardial infarction; D72.829 Elevated white blood cell count, unspecified; Z99.89 Dependence on other enabling machines and devices; Z74.3 Need for continuous supervision; Z79.899 Other long term (current) drug therapy; Z79.891 Long term (current) use of opiate analgesic
CPT/HCPCS: 51702; 80048; 80076; 80307; 80320; 80329; 83605; 83690; 83735; 85025; 87040; 93005; 96361; 96365; 96375; 99285; A0425; A0427; J2405; J2543; J2550; J7050